=== PATIENT | female | born 2000 | race Caucasian/White ===

== ENCOUNTER 2025-04-03 15:54 | Emergency (ER) | payer SELFPAY ==
[~2025-04-03] VITALS: Ht 147.3 cm; Wt 44.0 kg
[2025-04-03 16:18] VITALS: O2SAT 100
[2025-04-03] MEDS ORDERED: AZITHROMYCIN 500 MG TABLET PO ONE (17:30)
[2025-04-03 18:18] LABS: BASOPHILS % 0.8 % (0.0-2.0); EOSINOPHILS % 0.9 % (0.0-5.0); HEMATOCRIT. 42.3 % (36.0-48.0); HEMOGLOBIN. 14.0 g/dL (12.0-16.0); LYMPHOCYTES % 21.4 % (20.0-50.0); MEAN PLATELET VOLUME 9.1 fl (7.4-10.4); MONOCYTES % 8.2 % (2.0-8.0); NEUTROPHILS % 68.7 % (40.0-76.0); PLATELET 255 x1000/uL (130-400); RED BLOOD CELL COUNT 4.72 mill/uL (4.2-5.4); RED CELL DISTRIBUTION WIDTH 13.1 % (11.6-14.6)
[2025-04-03 18:28] LABS: CREATININE 0.6 mg/dL (0.6-1.0); UREA NITROGEN BLOOD 7 mg/dL (9-23)
[2025-04-03 18:29] LABS: TROPONIN I HIGH SENSITIVITY < 4 ng/L (3.0-34)
[2025-04-03 18:30] LABS: ASPARTATE AMINOTRANSFERASE 18 IU/L (<34); BILIRUBIN DIRECT 0.4 mg/dL (<=3.0); BILIRUBIN TOTAL 1.2 mg/dL (0.1-1.0); PROTEIN TOTAL 7.5 g/dL (6.0-8.3)
[2025-04-03] MEDS ORDERED: AZIT250T12 MT (19:23)
[2025-04-03] MEDS ORDERED: GUAI-996 MT (19:23)
[2025-04-03] MEDS ORDERED: IBUP-2030 MT (19:23)
[2025-04-03] MEDS: AZITHROMYCIN 500 MG TABLET PO NR (19:31)
[2025-04-03 19:33] VITALS: BP 107/66; PULSE 84; RESP 14; TEMP 37.1; O2SAT 100
[2025-04-03 23:56] LABS: CLARITY URINE CLEAR (CLEAR); COLOR URINE YELLOW (YELLOW); GLUCOSE URINE NEGATIVE (NEGATIVE); KETONES URINE 2+ (NEGATIVE); NITRITE URINE NEGATIVE (NEGATIVE); OCCULT BLOOD URINE NEGATIVE (NEGATIVE); PH URINE 6.0 (4.5-8.0); PROTEIN URINE NEGATIVE (NEGATIVE); SPECIFIC GRAVITY URINE 1.009 (1.005-1.030)
[2025-04-03 23:57] LABS: LEUKOCYTE ESTERASE URINE NEGATIVE (NEGATIVE); UROBILINOGEN URINE 0.2 E.U./dL (0.2-1.0)
== END 2025-04-03 20:13 | disposition home or self-care (01) ==
LOC: ER 15:54 → CMPBEDREQ 04-04 19:33
DX: J20.9 Acute bronchitis, unspecified (principal); M94.0 Chondrocostal junction syndrome [Tietze]; R06.02 Shortness of breath
CPT/HCPCS: 80076; 80048; 81003; 81025; 83880; 83690; 85025; 84484; 36415; 71045; 76705; 99284; Z7610; A4606